=== PATIENT | female | born 1975 | race Caucasian/White ===

== ENCOUNTER → 2018-10-26 | Outpatient (CLI) | payer OTHER ==
--- NOTE | 2018-10-27 11:39 | MM ---
Reason for exam: screening (asymptomatic). Last mammogram was performed 2 years ago. History: Family history of breast cancer in paternal grandmother. Excisional biopsy of the right breast, 2010. Physical Findings: A clinical breast exam by your physician is recommended on an annual basis and results should be correlated with mammographic findings. MG 3D Screening Mammo W/Cad Bilateral CC and MLO view(s) were taken. Prior study comparison: October 28, 2016, bilateral MG 3d screening mammo w/cad. February 04, 2015, bilateral MG screening mammo w CAD. The breast tissue is heterogeneously dense. This may lower the sensitivity of mammography. There is no discrete abnormality. ASSESSMENT: Negative, BI-RAD 1 RECOMMENDATION: Routine screening mammogram of both breasts in 1 year.
== END | disposition home or self-care (01) ==
LOC: RADMAMWWP 07:23
PROVIDERS: ATTEND Obstetrics & Gynecology
DX: Z12.31 Encounter for screening mammogram for malignant neoplasm of breast (principal); Z80.3 Family history of malignant neoplasm of breast
CPT/HCPCS: 77063; 77067

== ENCOUNTER → 2019-02-09 | Outpatient (CLI) | payer OTHER ==
--- NOTE | 2019-02-09 09:38 | MM ---
Reason for exam: clinical finding. Last mammogram was performed 4 months ago. History: Family history of breast cancer in paternal grandmother at age 50 and breast cancer in paternal aunt at age 40. Excisional biopsy of the right breast, 2010. Benign excisional biopsy of the left breast. Physical Findings: Nurse did not find any significant physical abnormalities on exam. MG 3D Diag Mammo W/Cad LT CC and MLO view(s) were taken of the left breast. Prior study comparison: October 26, 2018, bilateral MG 3d screening mammo w/cad. October 28, 2016, bilateral MG 3d screening mammo w/cad. The breast tissue is heterogeneously dense. This may lower the sensitivity of mammography. There is no discrete abnormality. These results were verbally communicated with the patient and result sheet given to the patient on 02/09/19. ASSESSMENT: Negative, BI-RAD 1 RECOMMENDATION: Return to routine screening mammogram schedule for both breasts. Back on schedule for October 2019.
--- NOTE | 2019-02-09 09:55 | USB ---
Reason for exam: clinical finding. History: Family history of breast cancer in paternal grandmother at age 50 and breast cancer in paternal aunt at age 40. Excisional biopsy of the right breast, 2010. Benign excisional biopsy of the left breast. US Breast LT Left complete breast ultrasound includes all four quadrants, the retroareolar region and axilla. Finding demonstrates a 0.5 x 0.4 x 0.4cm oval, mixed lesion at 2 o'clock too small to characterize. These results were verbally communicated with the patient and result sheet given to the patient on 02/09/19. ASSESSMENT: Probably benign, BI-RAD 3 RECOMMENDATION: Ultrasound of the left breast in 6 months.
== END | disposition home or self-care (01) ==
LOC: RADMAMWWP 07:52
PROVIDERS: ATTEND Obstetrics & Gynecology
DX: N64.52 Nipple discharge (principal)
CPT/HCPCS: 77061; 77065

== ENCOUNTER → 2020-01-19 | Outpatient (CLI) | payer OTHER ==
--- NOTE | 2020-01-22 08:11 | USB ---
Reason for exam: clinical finding. History: Family history of breast cancer in paternal grandmother at age 50 and breast cancer in paternal aunt at age 40. Excisional biopsy of the right breast, 2010. Benign excisional biopsy of the left breast. Physical Findings: Nurse Summary: Patient states she has an abnormally itchy nipple x 2 years left breast, states she occasiionally has a white crust over her left nipple x 1 year (nurse TM). US Breast Limited LT Technologist: Patricia Frazier Left limited breast ultrasound including focal area of concern, retroareolar and axilla demonstrates a 0.7 x 0.7 x 0.4cm circular, cystic lesion at 2 o'clock, prior 0.5 x 0.4 x 0.4cm on 02/19/19. These results were verbally communicated with the patient and result sheet given to the patient on 01/19/20. ASSESSMENT: Benign, BI-RAD 2 RECOMMENDATION: Routine screening mammogram of both breasts in 1 month. Back on schedule. Due February 2020. Manage patient on a clinical basis.
== END | disposition home or self-care (01) ==
LOC: RADUSWWP 15:02
PROVIDERS: ATTEND Obstetrics & Gynecology
DX: R92.8 Other abnormal and inconclusive findings on diagnostic imaging of breast (principal)

== ENCOUNTER → 2021-09-26 | Outpatient (CLI) | payer OTHER ==
--- NOTE | 2021-09-26 11:12 | MM ---
Reason for exam: clinical finding. Last mammogram was performed 2 years and 7 months ago. History: Family history of breast cancer in paternal grandmother at age 50 and breast cancer in paternal aunt at age 40. Excisional biopsy of the right breast, 2010. Benign excisional biopsy of the left breast. Physical Findings: Nurse did not find any significant physical abnormalities on exam. MG 3D Diag Mammo W/Cad RHINA Bilateral CC and MLO view(s) were taken. Prior study comparison: February 09, 2019, left breast MG 3d diag mammo w/cad LT. October 26, 2018, bilateral MG 3d screening mammo w/cad. The breast tissue is heterogeneously dense. This may lower the sensitivity of mammography. Previous mammotome biopsy in the right breast. Stable areas of asymmetric density. These results were verbally communicated with the patient and result sheet given to the patient on 09/26/21. ASSESSMENT: Incomplete: need additional imaging evaluation, BI-RAD 0 RECOMMENDATION: Ultrasound of the left breast.
--- NOTE | 2021-09-26 11:17 | USB ---
Reason for exam: clinical finding. History: Family history of breast cancer in paternal grandmother at age 50 and breast cancer in paternal aunt at age 40. Excisional biopsy of the right breast, 2011. Benign excisional biopsy of the left breast. US Breast LT Technologist: Patricia Frazier Left complete breast ultrasound includes all four quadrants, the retroareolar region and axilla. Finding demonstrates a 0.7 x 0.6 x 0.4cm lesion at 1 o'clock and a 1.1 x 0.8 x 0.6cm irregular, hypoechoic lesion at 5 o'clock, biopsy recommended. These results were verbally communicated with the patient and result sheet given to the patient on 09/26/21. ASSESSMENT: Suspicious, BI-RAD 4 RECOMMENDATION: Ultrasound core biopsy of the left breast. Called Dr. Taveras's office with mammographic findings and has scheduled an appointment for the patient for 10/22/21 at 9:[address] Espana. Biopsy scheduled for 10/15/21 at 7:00. PRELIMINARY REPORT CALLED AND FAXED TO DR. ESPANA ON 09/26/21.
== END | disposition home or self-care (01) ==
LOC: RADMAMWWP 07:05
PROVIDERS: ATTEND Obstetrics & Gynecology
DX: N64.89 Other specified disorders of breast (principal); Z80.3 Family history of malignant neoplasm of breast
CPT/HCPCS: 77062; 77066

== ENCOUNTER → 2021-10-15 | Day surgery (SDC) | payer OTHER ==
[2021-10-15 07:55] VITALS: BP 117/81; PULSE 64; RESP 16; TEMP 97.6
--- NOTE | 2021-10-15 16:29 | USB ---
EXAMINATION TYPE: US discontinued breast bx LT DATE OF EXAM: 10/15/2021 CLINICAL HISTORY: . Previous abnormal ultrasound TECHNIQUE: Real-time linear array sonography, real-time observation, and real-time scanning performed . COMPARISON: 09/26/2021 FINDINGS: Images are reviewed. Real-time observation and scanning was performed. What appears to be a ligament is present. This is creating an appearance of shadowing. 90 degree orthogonal view demonstrates no pe rsistent abnormality. Breast tissue appears normal. A persistent suspicious hypoechoic lesion or shad owing is not evident. Findings were discussed with the patient. The patient is comfortable with observation. Patient will c ontinue monthly self breast examination. Patient is aware earlier diagnostic imaging can be performed for changing clinical findings. IMPRESSION: 1. Probably benign findings. 2. BI-RADS 3 Recommendations: 1. Short-term follow-up left breast ultrasound. 2. Patient should continue monthly self breast exam. 3. Negative ultrasound should not preclude biopsy of suspicious palpable abnormalities.
== END ==
LOC: RADUSWWP 07:11
PROVIDERS: ATTEND Student in an Organized Health Care Education/Training Program
DX: R92.8 Other abnormal and inconclusive findings on diagnostic imaging of breast (principal)